=== PATIENT | female | born 1980 | race Caucasian/White ===

== ENCOUNTER → 2016-11-18 | Day surgery (SDC) | payer BC ==
[~2016-11-18] MED LIST: ELAVIL 50 MG TA50 MG PO
== END | disposition home or self-care (01) ==
LOC: OR 06:44
PROVIDERS: Internal Medicine Gastroenterology
PROC: 0DJD8ZZ Inspection of Lower Intestinal Tract, Via Natural or Artificial Opening Endoscopic (ICD-10-PCS; principal; 2016-11-18 10:15)
DX: K60.2 Anal fissure, unspecified (principal); K62.5 Hemorrhage of anus and rectum; K59.00 Constipation, unspecified; Z82.49 Family history of ischemic heart disease and other diseases of the circulatory system; Z83.3 Family history of diabetes mellitus; Z79.899 Other long term (current) drug therapy; Z90.49 Acquired absence of other specified parts of digestive tract; Z98.890 Other specified postprocedural states
CPT/HCPCS: 36415; 84703; J7030

== ENCOUNTER → 2020-11-07 | Outpatient (CLI) | payer BC ==
[2020-11-07 06:31] LABS: RED BLOOD COUNT 4.95 M/UL (4.00-5.10); WHITE BLOOD COUNT 6.9 K/UL (4.5-11.0)
[2020-11-07 06:39] LABS: BUN/CREATININE RATIO 15 (0-10)
== END ==
LOC: LAB 05:44
PROVIDERS: Nurse Practitioner Family
DX: E55.9 Vitamin D deficiency, unspecified (principal)
CPT/HCPCS: 36415; 80053; 80061; 82607; 84439; 84443; 85025

== ENCOUNTER 2021-04-08 10:55 | Emergency (ER) | payer BC ==
[2021-04-08] MEDS ORDERED: CYCLOBENZAPRINE10 MG PO (11:36)
[2021-04-08] MEDS ORDERED: MEDROL DOSEPAK 24 MG PO (11:36)
== END 2021-04-08 12:12 | disposition home or self-care (01) ==
LOC: ER1 10:55
DX: M54.31 Sciatica, right side (principal); Z90.89 Acquired absence of other organs
CPT/HCPCS: 96372; 99283; J1100; J1885

== ENCOUNTER → 2022-03-28 | Outpatient (CLI) | payer BC ==
[~2022-03-28] MED LIST changes: +CYCLOBENZAPRINE10 MG PO; +MEDROL DOSEPAK 24 MG PO
== END ==
LOC: KOH-I 08:05
DX: M47.26 Other spondylosis with radiculopathy, lumbar region (principal); M48.061 Spinal stenosis, lumbar region without neurogenic claudication
CPT/HCPCS: 72148